=== PATIENT | female | born 1950 | race Caucasian/White ===

== ENCOUNTER 2017-12-08 06:57 | Outpatient (CLI) | payer MEDICARE, MEDICAID ==
--- NOTE | 2017-12-08 07:51 | ULT ---
RIGHT UPPER QUADRANT ULTRASOUND: HISTORY: A 66-year-old female with a history of right upper quadrant pain. FINDINGS: Liver echogenicity is very mildly coarse. The gallbladder shows no evidence of gallstones, wall thic kening, edema, or pericholecystic fluid. Common bile duct is 0.3 cm. Visualized pancreas and right kidney are unremarkable. IMPRESSION: Unremarkable right upper quadrant ultrasound. POS: [facility]
== END 2017-12-08 06:58 | disposition home or self-care (01) ==
LOC: BICULT 06:57 → ULT 06:58
PROVIDERS: ATTEND Internal Medicine Gastroenterology
DX: K31.84 Gastroparesis (principal); R94.5 Abnormal results of liver function studies; R74.8 Abnormal levels of other serum enzymes; K21.9 Gastro-esophageal reflux disease without esophagitis; R10.11 Right upper quadrant pain
CPT/HCPCS: 76705

== ENCOUNTER 2017-12-08 08:06 | Emergency (ER) | payer MEDICARE, OTHER ==
--- NOTE | 2017-12-08 09:37 | RAD ---
RIGHT WRIST 3 VIEWS: Date: 12/08/17 HISTORY: Wrist pain. FINDINGS: There is a focal circumscribed lucent lesion in the distal radius. This has the appearance of a possi ble harvest site from prior surgical procedure. Please correlate clinically regarding history. If the re has been no surgical harvest at this site, other considerations include benign bone cysts or other benign cortical defect. Degenerative osteoarthritic changes seen at the first carpometacarpal joint. There is narrowing of th e radiocarpal joint. Mild degenerative changes at the scaphotrapezium. Chondrocalcinosis at the trian gular fibrocartilage. IMPRESSION: 1. Focal lucent lesion in the distal radius is suggestive of a harvest site. Correlate clinically. 2. Degenerative changes at the wrist as described. Dr. Walsh was also consulted and agrees with this assessment. POS: [facility]
== END 2017-12-08 08:58 | disposition left against medical advice (07) ==
LOC: ERS 08:06
DX: Z53.21 Procedure and treatment not carried out due to patient leaving prior to being seen by health care provider (principal)

== ENCOUNTER 2017-12-16 09:54 | Emergency (ER) | payer MEDICARE, OTHER ==
[2017-12-16] MEDS ORDERED: Ketorolac Tromethamine 30 MG/ML VIAL ONE (11:10)
== END 2017-12-16 11:30 | disposition home or self-care (01) ==
LOC: ERS 09:54
DX: G89.29 Other chronic pain (principal); I10 Essential (primary) hypertension; E11.9 Type 2 diabetes mellitus without complications; D64.9 Anemia, unspecified; E55.9 Vitamin D deficiency, unspecified; M19.90 Unspecified osteoarthritis, unspecified site; W19.XXXA Unspecified fall, initial encounter; Y92.513 Shop (commercial) as the place of occurrence of the external cause
CPT/HCPCS: 96372; J1885

== ENCOUNTER 2017-12-26 08:57 | Emergency (ER) | payer MEDICARE, MEDICAID ==
[2017-12-26] MEDS ORDERED: Ketorolac Tromethamine 60 MG/2 ML VIAL ONE (09:41)
== END 2017-12-26 10:05 | disposition home or self-care (01) ==
LOC: ERS 08:57
DX: M79.651 Pain in right thigh (principal); M25.551 Pain in right hip; D64.9 Anemia, unspecified; M19.90 Unspecified osteoarthritis, unspecified site; E11.9 Type 2 diabetes mellitus without complications; I10 Essential (primary) hypertension
CPT/HCPCS: 96372; J1885

== ENCOUNTER 2018-02-11 10:02 | Emergency (ER) | payer MEDICARE, OTHER ==
[2018-02-11] MEDS ORDERED: Ondansetron HCl/PF 4 MG/2 ML Vial ONE (10:10)
[2018-02-11 10:54] LABS: ALT (SGPT) 96 U/L (8-55); AST (SGOT) 49 U/L (5-34); Albumin 3.9 g/dL (3.4-4.8); Alkaline Phosphatase 442 U/L (40-150); Anion Gap 13 mmol/L (10-20); BUN (Urea Nitrogen) 8 mg/dL (9.8-20.1); Bilirubin, Total 0.3 mg/dL (0.2-1.2); Calc. Creatinine Clearance 0 mL/min (70-130); Calcium 10.3 mg/dL (7.8-10.44); Carbon Dioxide 30 mmol/L (23-31); Chloride 90 mmol/L (98-107); Estimated GFR-MDRD 74; Globulin 3.7 g/dL (2.4-3.5); Glucose 321 mg/dL (80-115); Lipase 28 U/L (8-78); Magnesium 1.4 mg/dL (1.6-2.6); Phosphorus 2.8 mg/dL (2.3-4.7); Potassium 3.4 mmol/L (3.5-5.1); Protein, Total 7.6 g/dL (6.0-8.3); Sodium 130 mmol/L (136-145)
[2018-02-11 11:10] LABS: Band 12 % (5-11); Hemoglobin 11.8 g/dL (12.0-16.0); Lymphocytes 15 % (21-51); MDiff Complete? YES; Mean Corpuscular HGB CONC 34.7 g/dL (32.0-36.0); Mean Corpuscular Hemoglobin 31.5 pg (27.0-31.0); Mean Corpuscular Volume 90.6 fL (78.0-98.0); Mean Platelet Volume 8.6 fL (7.4-10.4); Monocytes 8 % (0-10); Neutrophil 64 % (42-75); Platelet Count 315 thou/uL (130-400); RBC Distribution Width 12.3 % (11.5-14.5); Red Blood Cell (RBC) Count 3.74 mill/uL (4.20-5.40); White Blood Cell (WBC) Count 11.7 thou/uL (4.8-10.8)
[2018-02-11 11:19] LABS: Bilirubin Negative (Negative); Blood, Urine Trace (Negative); Glucose, Urine (Dipstick) 250 mg/dL (Negative); Leukocyte Moderate (Negative); Nitrite Positive (Negative); Protein, Urine (Dipstick) Negative (Neg-Trace); Urobilinogen 0.2 mg/dL (0.2-1.0)
[2018-02-11 11:22] LABS: Clarity HAZY (Clear)
[2018-02-11 11:29] LABS: Bacteria/HPF 4+ HPF (None Seen); Hyaline Casts/LPF NONE SEEN LPF (0-3 Hyaline); RBC/HPF 0-3 HPF (0-3); Squamous Epithelial 0-3 HPF (0-3)
[2018-02-11] MEDS ORDERED: cefTRIAXone\\ROCEPHIN 2 GM VIAL ONE (12:08)
== END 2018-02-11 12:38 | disposition home or self-care (01) ==
LOC: ERS 10:02
DX: N39.0 Urinary tract infection, site not specified (principal); D64.9 Anemia, unspecified; E11.9 Type 2 diabetes mellitus without complications; E55.9 Vitamin D deficiency, unspecified; I10 Essential (primary) hypertension; M19.90 Unspecified osteoarthritis, unspecified site
CPT/HCPCS: 36416; 80053; 81003; 81015; 82010; 83690; 83735; 84100; 85025; 87086; 93005; 96361; 96365; 96375; J0696; J2405

== ENCOUNTER 2018-03-04 00:33 | Observation (INO) | payer MEDICARE, MEDICAID ==
[2018-03-04 01:16] LABS: #Basophils 0.1 thou/uL (0.0-0.2); #Eosinphils 0.1 thou/uL (0.0-0.7); #Lymphocytes 1.6 thou/uL (1.20-3.40); #Monocytes 1.2 thou/uL (0.11-0.59); #Neutrophils 10.1 thou/uL (1.40-6.50); %Basophils 0.7 % (0.0-1.0); %Eosinophils 0.6 % (0.0-10.0); %Lymphocytes 12.5 % (21.0-51.0); %Monocytes 9.2 % (0.0-10.0); %Neutrophils 77.1 % (42.0-75.0); Hemoglobin 12.9 g/dL (12.0-16.0); Mean Corpuscular HGB CONC 30.6 g/dL (32.0-36.0); Mean Corpuscular Hemoglobin 29.1 pg (27.0-31.0); Mean Corpuscular Volume 94.9 fL (78.0-98.0); Mean Platelet Volume 7.7 fL (7.4-10.4); Platelet Count 476 thou/uL (130-400); RBC Distribution Width 12.8 % (11.5-14.5); Red Blood Cell (RBC) Count 4.42 mill/uL (4.20-5.40); White Blood Cell (WBC) Count 13.1 thou/uL (4.8-10.8)
[2018-03-04] MEDS ORDERED: Morphine 4 MG/ML VIAL ONE (01:24)
[2018-03-04 01:32] LABS: ALT (SGPT) 33 U/L (8-55); AST (SGOT) 37 U/L (5-34); Albumin 4.2 g/dL (3.4-4.8); Alkaline Phosphatase 235 U/L (40-150); Anion Gap 17 mmol/L (10-20); BUN (Urea Nitrogen) 38 mg/dL (9.8-20.1); Bilirubin, Total 0.3 mg/dL (0.2-1.2); CK (CPK) 54 U/L (29-168); Calc. Creatinine Clearance 0 mL/min (70-130); Calcium 10.5 mg/dL (7.8-10.44); Carbon Dioxide 18 mmol/L (23-31); Chloride 103 mmol/L (98-107); Estimated GFR-MDRD 67; Globulin 3.9 g/dL (2.4-3.5); Glucose 97 mg/dL (80-115); Lipase 35 U/L (8-78); Potassium 5.5 mmol/L (3.5-5.1); Protein, Total 8.1 g/dL (6.0-8.3); Sodium 132 mmol/L (136-145)
[2018-03-04 01:35] LABS: CKMB 1.5 ng/mL (0-6.6); Troponin I Less than 0.010 ng/mL (< 0.028)
[2018-03-04 03:12] LABS: Bilirubin Negative (Negative); Blood, Urine Negative (Negative); Clarity CLOUDY (Clear); Glucose, Urine (Dipstick) Negative (Negative); Leukocyte Moderate (Negative); Nitrite Positive (Negative); Protein, Urine (Dipstick) Negative (Neg-Trace); Specific Gravity, Urine 1.031 (1.002-1.036); Urobilinogen 0.2 mg/dL (0.2-1.0)
[2018-03-04 03:15] LABS: Bacteria/HPF 4+ HPF (None Seen); Hyaline Casts/LPF 0-3 HYALINE CAST LPF (0-3 Hyaline); Pathc Cast-AUWi Flag 0.14 (0-2.49); RBC/HPF 0-3 HPF (0-3)
[2018-03-04] MEDS ORDERED: Sodium Chloride 0.45% 1,000 ML IV SCH (06:07)
[2018-03-04] MEDS ORDERED: Ondansetron HCl/PF 4 MG/2 ML Vial IVP PRN ×2 (06:07→10:44)
[2018-03-04] MEDS ORDERED: Ondansetron ODT 4 MG TAB SL PRN (06:07)
[2018-03-04] MEDS ORDERED: Morphine 4 MG/ML VIAL IV PRN (06:09)
[2018-03-04 06:20] VITALS: BMI 32.7
--- NOTE | 2018-03-04 08:46 | RAD ---
PORTABLE AP CHEST XRAY: Date: 03/04/18. HISTORY: Cough. COMPARISON: 05/24/17. FINDINGS: Cardiac silhouette and pulmonary vasculature are within normal limits. Calcified granuloma is again seen in the right mid lung zone. The lungs are otherwise clear. There has been no interval change f rom the prior study. IMPRESSION: No acute cardiopulmonary process. POS: [facility]
[2018-03-04] MEDS ORDERED: Acetaminophen 500 MG TAB PO PRN (10:34)
[2018-03-04] MEDS ORDERED: Dextrose 50% Abboject 50 ML SYRINGE SLOW IVP PRN (10:44)
[2018-03-04] MEDS ORDERED: Dextrose 5% in Water 1,000 ML IV PRN (10:44)
[2018-03-04] MEDS ORDERED: cloNIDine 0.1 MG TAB PO PRN (10:44)
[2018-03-04] MEDS ORDERED: HYDROcodone/Acetaminophen 7.5/325 mg Tablet PO PRN (10:44)
[2018-03-04] MEDS ORDERED: HumaLOG 300 UNITS/3 ML VIAL SC PRN ×2 (10:44)
[2018-03-04] MEDS ORDERED: hydrALAZINE 20 MG/ML VIAL SLOW IVP PRN (10:44)
[2018-03-04] MEDS ORDERED: PROVENTIL INHALER 6.7 G (200 INHALATIONS) INH PRN (11:45)
[2018-03-04] MEDS: Sodium Chloride 0.9% 1,000 ML IV SCH (12:06)
[2018-03-04] MEDS ORDERED: ISOVUE-370 76%-LOCM 1 ML ONE (12:14)
[2018-03-04] MEDS: Baclofen 10 MG TAB PO SCH ×2 (14:32→21:03)
[2018-03-04] MEDS: metFORMIN 500 MG TAB PO SCH ×2 (14:32→21:03)
[2018-03-04] MEDS: Ondansetron ODT 4 MG TAB PO PRN (14:33)
--- NOTE | 2018-03-04 18:05 | HP ---
DATE OF ADMISSION: 03/04/2018 PRIMARY CARE PHYSICIAN: Romie Levine M.D. CHIEF COMPLAINT: Body pain. HISTORY OF PRESENT ILLNESS: This is a 67-year-old female who presents to [facility] Emergency Department complaining of generalized body aches as well as hypoglycemia. The pa bogdan states she took approximately 24 units of her Lantus in the evening on 03/03/2018 and noticed f eeling weak in her legs and general body aches. The patient apparently took her own glucose at home and noted to be in the 40s. The patient states she takes generally anywhere from 10-25 units of Lant us in the evenings. The patient states she has been on insulin therapy for years and normally is man aging her diabetes at home. The patient states she usually consumes orange juice when her sugar is l ow; however, she states she had no specific money and was unable to purchase the orange juice this we ekend. The patient denies any specific fever, chills, exposure history or change to her chronic medi cation regimen. The patient states she generally has back and leg pains and has limited mobility at home using a rolling walker for mobilization. The patient states she receives assistance at home wit h meal preparations and general house work. The patient denied any unilateral weakness, shortness of breath, cough or dysuria. The patient does state she urinates frequently, but this is a chronic con dition. The patient denies any change to her bowel regimen, nausea, vomiting or diarrhea. In the em ergency room, the patient underwent general evaluation and was noted with hypothermia with an initial temperature of 91.7 degrees Fahrenheit rectally. The patient received IV fluids as well as levoflox acin and morphine sulfate. Initial glucose was in the 90s without recurrence of hypoglycemia. The p atient was also treated for suspected urinary tract infection. Patient currently states she feels be tter with general weakness, but no specific chest pain or abdominal discomfort. PAST MEDICAL HISTORY: 1. Diabetes mellitus type 2, insulin requiring. 2. Hypertension. 3. History of CVA with mild residual weakness. 4. Osteoarthritis. 5. Depression. 6. Iron deficiency anemia. PAST SURGICAL HISTORY: 1. Status post bilateral total knee arthroplasties. 2. Status post left shoulder repair. 3. Status post carpal tunnel release bilaterally. 4. Status post appendectomy. CURRENT MEDICATIONS: 1. Albuterol sulfate 90 mcg inhaled daily p.r.n. 2. Enteric coated aspirin 81 mg p.o. daily. 3. Baclofen 10 mg p.o. t.i.d. 4. Citalopram 20 mg p.o. daily. 5. Enalapril/HCTZ 10/25 mg 1 tab p.o. b.i.d. 6. Montgomery 7.5/325 mg 1 tab p.o. q.6 hours p.r.n. pain. 7. Glargine insulin 10 units subcutaneously at bedtime. 8. Glucophage 500 mg p.o. t.i.d. 9. Actos 45 mg p.o. daily. ALLERGIES: DOXYCYCLINE, PENICILLIN. FAMILY HISTORY: Positive for hypertension and diabetes. SOCIAL HISTORY: Patient resides in [place], [place]. Ambulates with the use of a rolling walker. [facility] home care services. No current alcohol, tobacco or illicit drug use. REVIEW OF SYSTEMS: The following complete review of systems was negative, unless otherwise mentioned in the HPI or below: Constitutional: Weight loss or gain, ability to conduct usual activities. Skin: Rash, itching. Eyes: Double vision, pain. ENT/Mouth: Nose bleeding, neck stiffness, pain, tenderness. Cardiovascular: Palpitations, dyspnea on exertion, orthopnea. Respiratory: Shortness of breath, wheezing, cough, hemoptysis, fever or night sweats. Gastrointestinal: Poor appetite, abdominal pain, heartburn, nausea, vomiting, constipation, or diarr hea. Genitourinary: Urgency, frequency, dysuria, nocturia. Musculoskeletal: Pain, swelling. Neurologic/Psychiatric: Anxiety, depression. Allergy/Immunologic: Skin rash, bleeding tendency. PHYSICAL EXAMINATION: VITAL SIGNS: Currently, blood pressure 131/62, pulse 78, respiratory rate 20, temperature 98.4 degre es Fahrenheit, O2 saturation 99% on room air. GENERAL APPEARANCE: This is a 67-year-old female, alert and oriented x3, pleasant, conversant, smiling, in no acute distress. HEENT: Pupils are equal, round, and reactive to light and accommodation. Extraocular muscles are in tact. No scleral icterus, no conjunctival injection. Nares patent. OP is clear. Teeth in good rep air. NECK: Supple, no cervical adenopathy, no thyromegaly, no carotid bruits, no JVD appreciated. Cervic al spine with full active and passive range of motion. No meningeal signs appreciated. CHEST: Lungs are clear to auscultation bilaterally. CARDIOVASCULAR: S1, S2 with a 1-2/6 systolic ejection murmur loudest in the right upper sternal bord er. ABDOMEN: Obese, soft, nontender, nondistended. Bowel sounds are positive in all four quadrants. La ndmarks are difficult to palpate due to patient's body habitus. EXTREMITIES: Warm and dry with fair turgor. No clubbing, cyanosis or asymmetric edema appreciated. Pulses are palpable distally at the dorsalis pedis, posterior tibial, and popliteal arteries bilater ally. Capillary refill less than 2 seconds. NEUROLOGIC: Cranial nerves II through XII are grossly intact. No focal or lateralizing signs apprec iated. PERTINENT LABORATORY DATA AND X-RAY FINDINGS: Sodium 132, potassium 5.5, chloride 103, CO2 of 18, BU N 38, creatinine 0.99, estimated GFR 67, glucose 97. Lactic acid 1.3, calcium 10.5, AST 37, ALT of 3 3, alkaline phosphatase 235. Total CK of 54, troponin I negative x1. Albumin 4.2, lipase 35. TSH 1 .08. CBC showed a white blood cell count of 13.1, hemoglobin 13, hematocrit 42, platelet count 476 w ith 77% neutrophils. Urinalysis positive for nitrites and moderate leukocyte esterase with greater t romero 50 to too numerous to count WBCs per high powered field. CT of the abdomen and pelvis dated 02/11 showed no acute intra-abdominal process. Portable chest x-ray dated 03/04/2018 showed no acut e cardiopulmonary process. Abdominal ultrasound showed gallbladder sludge without obstruction. EKG dated 03/04/2018 by my interpretation shows sinus mechanism with heart rates in the 60s. Normal R-wa ve progression noted in the precordial leads. Normal axis. No acute ST-T wave changes appreciated. ASSESSMENT AND PLAN: 1. Hypoglycemia. Iatrogenic. Resolving currently. We will continue intravenous fluids with normal saline at 75 mL per hour. Hold Actos. Continue to monitor glucose trend. Check A1c level in the a .m. 2. Urinary tract infection. Suspected given initial urinalysis results. Continue Levaquin 500 mg p .o. daily and await final urine culture results. 3. Dehydration. We will continue intravenous normal saline at 75 mL per hour. Encourage increased free water intake orally. 4. Diabetes mellitus type 2, insulin requiring. Hold Actos due to questionable hypoglycemia. Resum e Lantus 10 units subcutaneously at bedtime with metformin 500 mg p.o. t.i.d. Serial Accu-Cheks befo re meals and at bedtime. ADA diet. 5. Hypertension. Resume home antihypertensive regimen and monitor clinical response. 7. Hyperkalemia. Mild. We will continue IV fluids and repeat potassium level in the a.m. Suspect secondary to dehydration. 8. Prophylaxis. Sequential compression devices while in bed. Pepcid 20 mg p.o. b.i.d. PT evaluati on for functional assessment. 9. Code status is full. Surrogate medical decision maker is the patient's daughter.
--- NOTE | 2018-03-04 18:07 | CT ---
PRELIMINARY REPORT/[facility]/EMERGENCY AFTER HOURS PROCEDURE: EXAM: CT Abdomen and Pelvis With Intravenous Contrast CLINICAL HISTORY: 67 years old, female; Pain; Abdominal pain; Generalized; Prior surgery; Surgery type: Appendectomy; P atient HX: 67 yo f presents to ed with generalized body pain. Pt reports generalized body aches, most severe to the back and legs, which she reports is chronic. Pt also reports hypoglycemia. Pt reports some associated SOB and abdominal pain. Pt denies chest pain, denies fever, denies cough, denies diarrhea, denies cough. Pt reports she is currently feeling a little better afte r being given some sugar. TECHNIQUE: Axial computed tomography images of the abdomen and pelvis with intravenous contrast. Coronal reforma tted images were created and reviewed. COMPARISON: No relevant prior studies available. FINDINGS: The lung bases are clear. Small hiatal hernia. No definite gallbladder abnormality by CT. Ultrasound could be more sensitive for detecting gallstones, if clinically needed. No biliary tree dilation. Unremarkable appearance of the liver, spleen, kidneys, adrenal glands, and pancreas. No free air, ascites, or bowel distention. No evidence for abdominal aortic aneurysm. No retroperitoneal adenopathy. CT pelvis: The appendix is not identified with certainty, however no pericecal inflammatory changes are seen. There are no CT findings to strongly suggest diverticulitis. No abnormal mass or fluid collection in the pelvis. IMPRESSION: No free air or bowel distention. No CT evidence to suggest appendicitis, however a normal appendix is not definitely visible. No diverticulitis. Small hiatal hernia. Other findings discussed above. Thank you for allowing us to participate in the care of your patient. Dictated and Authenticated by: Arnaldo Matthew MD 03/04/2018 2:26 AM Central Time ([place] & [place]) FINAL REPORT EMERGENT AFTER HOURS CT ABDOMEN AND PELVIS: DATE: 03/04/18. HISTORY: Generalized abdominal pain and body aches. Hypoglycemic. COMPARISON: 05/24/17. IMPRESSION: 1. Small hiatal hernia. 2. No dilated loops of small bowel are seen to suggest a small bowel obstruction. 3. Hysterectomy. 4. No acute findings are seen in the abdomen or pelvis. 5. Compression fracture of indeterminate age involving the L3 vertebral body. However, this was pre sent on the prior study in 2017 with a stable degree of height loss. There is stable mild irregulari ty also seen involving the inferior end plate at L4 vertebral body which may be related to mild heigh t loss related to compression deformity. 6. Findings are in agreement with the preliminary report by [facility]. POS: [facility]
--- NOTE | 2018-03-04 18:07 | ULT ---
PRELIMINARY REPORT/[facility]/EMERGENCY AFTER HOURS PROCEDURE: EXAM: US Abdomen Limited, Right Upper Quadrant CLINICAL HISTORY: 67 years old, female; Pain; Other: Upper abd pain, elevated lfts TECHNIQUE: Real-time ultrasound of the right upper quadrant with image documentation. COMPARISON: CT Abdomen Pelvis W Con 03/04/2018 1:42 AM FINDINGS: No definite cholelithiasis or shadowing gallstones. Possibly a small amount of biliary sludge in the gallbladder. No gallbladder wall thickening or pericholecystic fluid. Borderline/mild extra hepatic biliary tree prominence, with common duct measuring about 6 mm. No defi nite intrahepatic dilation. No visible common duct stone by ultrasound. Significance uncertain. Correlation with laboratory/bilirubin levels may be helpful to determine if t here is any significant biliary obstruction. Unremarkable liver, no focal abnormality. Visible pancreas unremarkable. Some of the pancreas is obscured by bowel gas. Images of the right kidney show no hydronephrosis. IMPRESSION: Possibly a small amount of biliary sludge in the gallbladder. No definite cholelithiasis. Borderline/mild extra hepatic biliary tree prominence, see above discussion. Thank you for allowing us to participate in the care of your patient. Dictated and Authenticated by: Arnaldo Matthew MD 03/04/2018 3:01 AM Central Time ([place] & [place]) FINAL REPORT EMERGENT AFTER HOURS RIGHT UPPER QUADRANT ULTRASOUND: DATE: 03/04/18. HISTORY: Upper abdominal pain and elevated liver function tests. IMPRESSION: 1. Suggestion of a minimal amount of sludge within the gallbladder lumen. No gallbladder calculus i s seen. The common duct measures 0.65 cm which is at the upper limits of normal. However, the commo n duct is more dilated than on the prior exam on 12/08/17 where the common duct measured 0.3 cm. 2. Findings are in agreement with the preliminary report by [facility]. POS: [facility]
--- NOTE | 2018-03-04 20:01 | CON ---
DATE OF CONSULTATION: 03/04/2018 REASON FOR CONSULT: Possible cholecystitis. HISTORY OF PRESENT ILLNESS: Ms. Tabares is a 67-year-old woman with a recent several-month history of abdominal pain. She states that it hurts all over and that she has had to change what she eats. Zach polk can no longer eat fried foods because that bothers her too much. She came into the hospital on thi s admission for generalized body pain and feeling weak. She was found to have low blood sugars and w as taking Lantus 24 units daily, although her medication instructions states that she should be takin g 10 daily. She was admitted to the Medicine Service and has been fairly stable in terms of her bloo d sugars, these have ranged from 107-172. In terms of her abdominal pain, the patient states that it hurts her every day and the pain is constant. She cannot really identify any one particular area of the body that hurts worse than other. PAST MEDICAL HISTORY: Diabetes, arthritis, hypertension, and anemia. PAST SURGICAL HISTORY: Bilateral knee surgeries, shoulder, and bilateral carpal tunnel, reported his tory of appendectomy. SOCIAL HISTORY: She does not smoke, drink or use illicit drugs and lives in her own apartment. ALLERGIES: She has reported allergies to DOXYCYCLINE and PENICILLIN. OUTPATIENT MEDICATIONS: Include Actos, albuterol, aspirin, baclofen, citalopram, enalapril/hydrochlo rothiazide, iron, Lantus, and metformin. FAMILY HISTORY: Noncontributory. PHYSICAL EXAMINATION: VITAL SIGNS: Afebrile since admission, heart rate 87, respirations 20, 98% saturated on room air, bl ood pressure 114/55. GENERAL: Reveals a pleasant, talkative, elderly woman in no acute distress. She does occasionally r eport things that her family states are inaccurate, but is able to give very clear information regard ing her doctors in how to contact them including addresses and phone numbers. HEENT: Unremarkable. NECK: Supple, without lymphadenopathy or thyroid nodules. HEART: Regular in its rate and rhythm without murmurs, rubs or gallops. LUNGS: Clear to auscultation bilaterally. She does not have pain with deep inspiration and breath s ounds are equal. ABDOMEN: Soft and nondistended. She is quite tender to palpation diffusely, but more so in the righ t upper quadrant. She does not exhibit rigidity, rebound or guarding. She may have a small umbilica l hernia, but there are no palpable masses. She has several dark scars in the upper and lateral abdo men, but not in the usual locations for port sites. EXTREMITIES: Warm and well perfused without edema. NEUROLOGIC: No focal deficits. PSYCHIATRIC: Alert and oriented, but occasionally mentions part of her medical history that do not a gree with the family members recollection. LABORATORY DATA: White count is elevated at 13, hematocrit 42, platelets 476. Electrolytes are unre markable except for slightly high potassium at 5.5 and calcium at 10.5. AST is mildly elevated at 37 , and her alkaline phosphatase is elevated at 235. ALT and bilirubin are normal. Lipase is normal. IMAGING: Written reports are still pending from the radiologist by report and also by my own examina tion of the images. Her gallbladder looks somewhat hazy on the CAT scan. A followup ultrasound was done to further evaluate this and it did show some possible sludge in the gallbladder and an equivoca l Ferguson sign. Her common bile duct was borderline in size and she may have some wall thickening. ASSESSMENT: Likely chronic cholecystitis, although her physical examination is not completely typica l for that. She is tender in the right upper quadrant and she has had fatty food intolerance over e past few months. The patient initially insisted when I saw her that she already had her gallbladde r out, but her family does not think that this is the case, she states that she recently had wrist franco rgery and that she may be getting confused and thinking that they had told her that she needs to get her gallbladder out, but has not yet. She does not have any scars on her abdomen that looked like franco rgical scars that would be used for laparoscopic cholecystectomy and there are no clips and the area of the gallbladder bed on CT and she does have a structure that is very typical in appearance for gal lbladder on her ultrasound and CT. PLAN: I have recommended that she undergo laparoscopic cholecystectomy with cholangiogram due to mil dly elevated LFTs and borderline common bile duct size and the patient and her family are in agreemen t with this plan. After consideration of what her family was saying that the patient does feel that she is likely miss remembering gallbladder surgery, but we will try to obtain her recent records from the other hospital here in town. She states that her surgeries were at [facility], but her fam nemesio states that these were just for her wrist. We will also try to obtain her records from Dr. Cary and she states that Dr. Cary had started her on the stomach medicine, but she could not take it up; h owever, she states the name of the stomach medicine was metformin, which is of diabetes medication so she has had a little confusion regarding her recent medical events. In any case, I discussed the pr ocedure of laparoscopic cholecystectomy and its inherent risks, both with the patient and with her ch ildren in the room. I discussed the inherent risks of the surgery, which include but are not limited to bleeding, infection, risks and site anesthesia, damage to nearby structures including bowel, live r and bile duct, need for open surgery, need further procedures. They all understand and accept thes e risks and wish to proceed. I have placed her on the OR schedule for tomorrow. She is medically st able, we will plan on proceeding with laparoscopic cholecystectomy at that time.
[2018-03-04] MEDS: Hydrochlorothiazide 25 MG TAB PO SCH (21:02)
[2018-03-04] MEDS: Famotidine 20 MG TAB PO SCH (21:02)
[2018-03-04] MEDS: INSULIN GLARGINE SC SCH (21:51)
[2018-03-05] MEDS: Sodium Chloride 0.9% 1,000 ML IV SCH ×3 (01:16→22:47)
[2018-03-05 05:28] LABS: Hemoglobin 10.3 g/dL (12.0-16.0); Mean Corpuscular HGB CONC 32.5 g/dL (32.0-36.0); Mean Corpuscular Hemoglobin 30.6 pg (27.0-31.0); Mean Corpuscular Volume 94.1 fL (78.0-98.0); Mean Platelet Volume 7.5 fL (7.4-10.4); Platelet Count 378 thou/uL (130-400); RBC Distribution Width 12.7 % (11.5-14.5); Red Blood Cell (RBC) Count 3.36 mill/uL (4.20-5.40); White Blood Cell (WBC) Count 7.3 thou/uL (4.8-10.8)
[2018-03-05 05:36] LABS: ALT (SGPT) 21 U/L (8-55); AST (SGOT) 19 U/L (5-34); Albumin 3.3 g/dL (3.4-4.8); Alkaline Phosphatase 163 U/L (40-150); Anion Gap 11 mmol/L (10-20); BUN (Urea Nitrogen) 27 mg/dL (9.8-20.1); Bilirubin, Total 0.3 mg/dL (0.2-1.2); Calc. Creatinine Clearance 95 mL/min (70-130); Calcium 9.7 mg/dL (7.8-10.44); Carbon Dioxide 20 mmol/L (23-31); Chloride 108 mmol/L (98-107); Estimated GFR-MDRD 79; Glucose 107 mg/dL (80-115); Potassium 4.6 mmol/L (3.5-5.1); Protein, Total 6.3 g/dL (6.0-8.3); Sodium 134 mmol/L (136-145)
[2018-03-05 06:07] LABS: Hypochromia SLIGHT = 6-15 cells (100X) (0-5/hpf); Lymphocytes 17 % (21-51); MDiff Complete? YES; Monocytes 8 % (0-10); Neutrophil 75 % (42-75); PLT Morphology Comment Appears Adequate
[2018-03-05] MEDS ORDERED: Iothalamate Meglumine 60% 50 ML VIAL FS ONE (08:01)
[2018-03-05] MEDS ORDERED: Bupivacaine/Epinephrine 0.25% 30 ML VIAL ONE (08:01)
[2018-03-05] MEDS ORDERED: Fentanyl 100 MCG/2 ML VIAL ONE ×2 (08:16→10:49)
[2018-03-05] MEDS ORDERED: Albuterol Sulfate 1.25 MG/3 ML NEB ONE (08:32)
[2018-03-05] MEDS ORDERED: Dexmedetomidine 200 MCG/2 ML VIAL ONE (08:57)
[2018-03-05] MEDS ORDERED: Phenylephrine HCL 10 MG/ML VIAL ONE (09:55)
[2018-03-05] MEDS ORDERED: PHENYLEPHRINE-NS 100 MCG/ML 10 ML SYRINGE ONE ×2 (09:56→12:59)
[2018-03-05] MEDS ORDERED: Promethazine HCl 25 MG/ML VIAL SLOW IVP PRN (10:29)
[2018-03-05] MEDS ORDERED: HYDROmorphone 2 MG/ML VIAL SLOW IVP PRN (10:29)
[2018-03-05] MEDS ORDERED: Ketorolac Tromethamine 30 MG/ML VIAL IVP PRN (10:29)
[2018-03-05] MEDS ORDERED: Ondansetron HCl/PF 4 MG/2 ML Vial IVP PRN (10:29)
[2018-03-05] MEDS ORDERED: Promethazine HCl 25 MG/ML VIAL IM PRN (10:29)
[2018-03-05] MEDS ORDERED: Meperidine HCl/PF 25 MG/ML VIAL SLOW IVP PRN (10:29)
[2018-03-05] MEDS ORDERED: Ibuprofen 200 MG TAB PO PRN ×2 (10:44)
[2018-03-05] MEDS ORDERED: HYDROcodone/Acetaminophen 5/325 mg Tablet PO PRN (10:45)
--- NOTE | 2018-03-05 11:31 | RAD ---
OPERATIVE CHOLANGIOGRAM 1 VIEW: This shows filling of a nondilated common duct with emptying into the duodenum. No filling defects a re seen. IMPRESSION: Unremarkable operative cholangiogram. POS: [facility]
[2018-03-05] MEDS: Baclofen 10 MG TAB PO SCH ×3 (12:19→20:50)
[2018-03-05] MEDS: Aspirin 81 mg Enteric Coated Tablet PO SCH (12:19)
[2018-03-05] MEDS: Citalopram 20 MG TAB PO SCH (12:19)
[2018-03-05] MEDS: Famotidine 20 MG TAB PO SCH ×2 (12:20→20:50)
[2018-03-05] MEDS: metFORMIN 500 MG TAB PO SCH ×3 (12:20→20:51)
[2018-03-05] MEDS: Hydrochlorothiazide 25 MG TAB PO SCH ×2 (12:20→20:51)
[2018-03-05] MEDS ORDERED: Glycopyrrolate 0.2 MG/ML 5 ML SYRINGE ONE (12:59)
[2018-03-05] MEDS ORDERED: Lidocaine 1% PF 5 ML VIAL ONE (12:59)
[2018-03-05] MEDS ORDERED: Ondansetron HCl/PF 4 MG/2 ML Vial ONE (12:59)
[2018-03-05] MEDS ORDERED: PROPOFOL 200 MG/20 ML VIAL ONE (12:59)
[2018-03-05] MEDS ORDERED: Succinylcholine Chloride 20 MG/ML 10 ml SYRINGE FS ONE (12:59)
[2018-03-05] MEDS ORDERED: Acetaminophen 325 MG TAB PO PRN ×2 (13:57)
[2018-03-05] MEDS: HYDROcodone/Acetaminophen 5/325 mg Tablet PO PRN (14:35)
--- NOTE | 2018-03-05 15:46 | PDOC.OP ---
Operative Note - Operative Note Operative Note: PROCEDURE: Laparoscopic cholecystectomy with intraoperative cholangiogram SURGEON: Dilshad Hanson M.D. DATE OF PROCEDURE: 03/05/2018 PREOPERATIVE DIAGNOSIS: Cholelithiasis and cholecystitis, possible choledocholithiasis: POSTOPERATIVE DIAGNOSIS: Cholelithiasis and cholecystitis HISTORY: Patient with right upper quadrant pain and fatty food intolerance. Laparoscopic cholecystectomy was recommended for symptomatic relief. She has some mild intermittent elevation of her LFTs so cholangiogram was recommended as well. FINDINGS: Chronically inflamed white walled gallbladder with omental adhesions. Small cystic duct with normal IOC. PROCEDURE IN DETAIL: After informed consent was obtained and appropriate preoperative antibiotics were administered, the patient was taken to the operating room and placed in the supine position and general endotracheal anesthesia was administered. The stomach was decompressed with an OG tube and the abdomen was prepped and draped in standard sterile fashion. Local anesthesia was infused to the skin and subcutaneous tissues at the umbilical level. A transverse skin incision was made. The fascia was elevated and a Veress needle was placed into the abdominal cavity without difficulty. Opening pressure was less than 5 and carbon dioxide gas easily insufflated to an intra- abdominal pressure of 15, which the patient tolerated well. The Veress needle was withdrawn and a Caldwell port advanced under direct vision. The abdominal cavity was carefully examined. There was no evidence of Veress needle or of trocar injury. Local anesthesia was infused to the skin and subcutaneous tissues at the epigastric, right upper quadrant, and right lateral abdominal sites and trocars were placed under direct vision of the laparoscope. The fundus of the gallbladder was grasped and retracted superiorly and omental adhesions taken down through the avascular plane using careful electrocautery as necessary.. The infundibulum was grasped and retracted laterally. The serosa was stripped inferiorly at the level of the neck of the gallbladder exposing the cystic duct and artery which were traced clearly to their insertion in the gallbladder. These were dissected free circumferentially and the cystic duct was clipped at the level of the neck of the gallbladder. The cystic artery was clipped but not divided. An incision was made in the cystic duct inferior to the clip and the cystic duct was palpated with no stones palpable. Clear bile was seen to flow from the cystic duct incision. A cholangiogram catheter was introduced and placed into the cystic duct and secured with a clip. A cholangiogram was obtained which showed an adequate length of cystic duct. There was normal filling of the common bile duct with free flow of contrast into the duodenum. There was normal retrograde flow into the common hepatic duct beyond the level of the bifurcation without filling defects. The cholangiogram catheter was removed and the cystic duct clipped below the incision in the cystic duct. The cystic duct was divided between these clips and the previously placed clip. The cystic artery was clipped and divided between the previously placed clips. The gallbladder was then dissected free of the gallbladder bed using hook electrocautery. Prior to complete removal of the gallbladder from the gallbladder bed, the area of the cystic duct and artery stumps was examined. The clips were in good position completely across these structures and there was no bleeding and no leakage of bile. The gallbladder was then placed into an EndoCatch bag and drawn out through the epigastric incision. The epigastric trocar was replaced and the operative site easily irrigated to clear. There was no significant bleeding or spillage of bile. The epigastric trocar was removed and the fascia closed under direct laparoscopic vision with a 0 Vicryl suture on a GraNee needle in a figure -of-eight manner with excellent technical result. The right upper quadrant and right lateral abdominal trocars were removed and hemostasis verified. Carbon dioxide gas was allowed to desufflate through the umbilical trocar which was then removed. The skin incisions were closed with 4-0 subcuticular Monocryl sutures and Dermabond dressings were placed. The patient was extubated and taken to the recovery room in good condition. There were no complications. ESTIMATED BLOOD LOSS: Minimal. SPECIMEN : Gallbladder and contents.
--- NOTE | 2018-03-05 16:29 | PDOC.PN ---
- Subjective Encounter Start Date: 03/05/18 Encounter Start Time: 16:20 Subjective: f/u for hypoglycemia without recurrence per nursing. Apparently underwent -: laparoscopic cholecystectomy today. No new complaints. Ucx with -: >100K Klebsiella spp on Levaquin. - Objective Resuscitation Status: Resuscitation Status FULL:Full Resuscitation MAR Reviewed: Yes Vital Signs & Weight: Vital Signs (12 hours) Temp Pulse Resp BP BP Pulse Ox 03/05/18 15:57 97.7 F 95 16 127/76 100 03/05/18 12:20 110/53 L 03/05/18 04:29 98.7 F 88 20 126/60 98 Weight Weight 218 lb 3.2 oz I&O: 03/04/18 03/05/18 03/06/18 06:59 06:59 06:59 Intake Total 2855 Output Total 200 1850 400 Balance -200 1005 -400 Result Diagrams: 03/05/18 05:08 03/05/18 05:08 Additional Labs: Accuchecks 03/05/18 03/04/18 03/04/18 07:32 21:39 16:23 POC Glucose 104 170 H 167 H Microbiology 03/04/18 02:57 Urine voided Urine Culture - Final Klebsiella pneumoniae ssp pneu 03/04/18 01:06 Venous blood - Left Arm Blood Culture - Preliminary Specimen has been received and culture in progress. No Growth to date. 03/04/18 01:00 Venous blood - Right Arm Blood Culture - Preliminary Specimen has been received and culture in progress. No Growth to date. Laboratory Tests 03/04/18 03/04/18 01:00 01:00 WBC 13.1 H Neutrophils % 77.1 H Potassium 5.5 H EKG Reviewed by me: Yes (Tele - SR) Phys Exam - Physical Examination Constitutional: NAD HEENT: PERRLA, sclera anicteric, oral pharynx no lesions Neck: no nodes, no JVD, supple, full ROM Respiratory: no wheezing, no rales, no rhonchi, clear to auscultation bilateral S1, S2 Cardiovascular: RRR, no significant murmur, no rub, gallop mild TTP at laparoscopic sites Gastrointestinal: soft, no distention, positive bowel sounds Musculoskeletal: no edema, pulses present Neurological: normal sensation, moves all 4 limbs Psychiatric: normal affect, A&O x 3 Skin: no rash, normal turgor, cap refill <2 seconds Dx/Plan (1) Hypoglycemia Code(s): E16.2 - HYPOGLYCEMIA, UNSPECIFIED Status: Acute Comment: Iatrogenic , resolved, continue to monitor glucose trend (2) UTI due to Klebsiella species Code(s): N39.0 - URINARY TRACT INFECTION, SITE NOT SPECIFIED; B96.1 - KLEBSIELLA PNEUMONIAE THE CAUSE OF DISEASES CLASSD ELSWHR Status: Acute Comment: Continue Levaquin 500mg po daily (3) Dehydration Code(s): E86.0 - DEHYDRATION Status: Acute Comment: Resolving, continue to encourage increased free-H2O (4) Hyperkalemia Code(s): E87.5 - HYPERKALEMIA Status: Acute Comment: Resolved with hydration , serial K+ (5) Diabetes mellitus, type II, insulin dependent Code(s): E11.9 - TYPE 2 DIABETES MELLITUS WITHOUT COMPLICATIONS; Z79.4 - HSE MANAGER (CURRENT) USE OF INSULIN Status: Chronic Comment: Continue home Lantus 10u HS, ISS, serial accuchecks (6) Status post laparoscopic cholecystectomy Code(s): Z90.49 - ACQUIRED ABSENCE OF OTHER SPECIFIED PARTS OF DIGESTIVE TRACT Status: Acute Comment: pain control, supportive mgmt - Plan continue antibiotics, PT/OT, socially responsible investment adviser, out of bed/ambulate, DVT proph w/ SCDs Stable overall -: Continue Lantus 10u sc HS -: OOB/ambulate -: Resume ADA diet -: Likely home in am * .
[2018-03-05] MEDS: INSULIN GLARGINE SC SCH (20:51)
[2018-03-06] MEDS: Sodium Chloride 0.9% 1,000 ML IV SCH ×2 (00:35→14:49)
[2018-03-06 08:05] VITALS: BP 135/86; TEMP 98
[2018-03-06] MEDS: Ondansetron ODT 4 MG TAB PO PRN (08:59)
[2018-03-06] MEDS: HYDROcodone/Acetaminophen 5/325 mg Tablet PO PRN ×2 (09:02→15:25)
[2018-03-06] MEDS: Citalopram 20 MG TAB PO SCH (09:02)
[2018-03-06] MEDS: Baclofen 10 MG TAB PO SCH ×2 (09:02→15:24)
[2018-03-06] MEDS: metFORMIN 500 MG TAB PO SCH ×2 (09:02→15:24)
[2018-03-06] MEDS: Hydrochlorothiazide 25 MG TAB PO SCH (09:02)
[2018-03-06] MEDS: Famotidine 20 MG TAB PO SCH (09:02)
[2018-03-06] MEDS: Aspirin 81 mg Enteric Coated Tablet PO SCH (09:02)
--- NOTE | 2018-03-06 14:51 | DIS ---
DATE OF ADMISSION: 03/04/2018 DATE OF DISCHARGE: 03/06/2018 DISCHARGE DIAGNOSES: 1. Hypoglycemia, iatrogenic, resolved. 2. Urinary tract infection with Klebsiella species. 3. Dehydration, resolved. 4. Hyperkalemia, resolved. 5. Chronic cholecystitis, status post laparoscopic cholecystectomy. 6. Diabetes mellitus type 2, insulin-dependent. 7. Hypertension, stable. CONSULTATION: Dr. Hanson with General Surgery Service. PERTINENT LABORATORY DATA AND IMAGING DATA: Potassium ranged between 4.6-5.5. Lactic acid level 1.3 . LFTs showed alkaline phosphatase ranged between 163-235. TSH 1.08, lipase 35. CBC showed a white blood cell count ranging between 7.3-13.1, hemoglobin ranged between 10.3-12.9. Urine culture dated 03/04/2018 showed greater than 100,000 colonies of Klebsiella species sensitive to quinolones. Bloo d cultures x2 dated 03/04/2018 showed no growth to date. CT of the abdomen and pelvis dated 03/04/20 18 showed small hiatal hernia. No acute findings noted. Portable chest x-ray dated 03/04/2018 showe d no acute cardiopulmonary process. Abdominal ultrasound dated 03/04/2018 showed minimal amount of s ludge in the gallbladder lumen. Common bile duct 0.65 cm. HOSPITAL COURSE: Patient was observed on the telemetry unit after initially presenting with generali zed body pain and hypoglycemia. The patient with known history of diabetes mellitus on insulin thera py, presenting with mild hypoglycemia correcting with glucose supplementation and discontinuation of insulin therapy for approximately 24 hours. The patient was also given IV fluids with overall stabil ization of glucose values. The patient was also noted with urinary tract infection with Klebsiella s pecies noted on urine culture, treated with Levaquin 500 mg daily. The patient was also evaluated fo r questionable abdominal pain, undergoing evaluation by the General Surgery Service for gallbladder s ludge noted on gallbladder ultrasound. The patient was deemed an appropriate candidate undergoing la paroscopic cholecystectomy on 03/05/2018 without complication. Final pathology from the gallbladder pending. Overall, patient remained clinically stable with general supportive management. The patien t is ambulating with rolling walker with stable vital signs. Telemetry monitoring showed sinus mecha nism without evidence of acute arrhythmia or dysrhythmia. I have examined the patient at the time of discharge and discussed followup instructions at which point the patient verbalized understanding an d agreement. The patient overall clinically stable and ready for discharge on 03/06/2018. DISCHARGE MEDICATIONS: 1. Levaquin 500 mg 1 tab p.o. daily x3 days. 2. ProAir HFA 90 mcg inhaled daily p.r.n. 3. Enteric-coated aspirin 81 mg p.o. daily. 4. Baclofen 10 mg p.o. t.i.d. 5. Celexa 20 mg p.o. daily. 6. Enalapril/HCTZ 10/25 mg 1 tab p.o. b.i.d. 7. Glargine insulin 10 units subcutaneously at bedtime. 8. Metformin 500 mg p.o. t.i.d. 9. Actos 45 mg p.o. daily. 10. [place] 5/325 mg 1-2 tabs p.o. q.4 hours p.r.n. pain. FOLLOWUP: Patient will follow up with Dr. Romie Levine within 7 days of discharge. The patient flower l follow up with Dr. Hanson with General Surgery Service and to call her office for appointment time and date. CONDITION ON DISCHARGE: Stable. ACTIVITY: Ad mark. Rolling walker for ambulation. DIET: ADA and heart healthy. CODE STATUS: FULL. DISPOSITION: Home 03/06/2018.
== END 2018-03-06 16:29 | disposition home or self-care (01) ==
LOC: ERS 00:33 → 2SW 05:59
PROVIDERS: ADMIT Internal Medicine; ATTEND Internal Medicine
PROC: 0FT44ZZ Resection of Gallbladder, Percutaneous Endoscopic Approach (ICD-10-PCS; principal; 2018-03-05)
PROC: BF131ZZ Fluoroscopy of Gallbladder and Bile Ducts using Low Osmolar Contrast (ICD-10-PCS; 2018-03-05)
DX: K81.1 Chronic cholecystitis (principal); E11.649 Type 2 diabetes mellitus with hypoglycemia without coma; I10 Essential (primary) hypertension; Z79.4 Long term (current) use of insulin; Z79.899 Other long term (current) drug therapy; Z88.0 Allergy status to penicillin
CPT/HCPCS: 47532; 47563; 71045; 74177; 76705; 80053; 82550; 82553; 82962 ×3; 83605; 83690; 84484; 85007; 85027; 87040; 87077; 87086; 87186; 88304; 93005; 96361 ×3; 96365; 96375 ×2; 96376; 97116; 97139 ×3; 99285; G0378; G8978; G8979; 36415; 36416; 81003; 81015; 84443; 85025; J0131; J1956; J2001; J2270; J2370; J2405; J2704; J3010; Q0162; Q9961